=== PATIENT | male | born 1940 | race Caucasian/White ===

== ENCOUNTER 2017-02-24 20:05 | Inpatient (IN) | payer MEDICARE ==
[2017-02-24 20:00] VITALS: BP 176/85; PULSE 73; RESP 20; TEMP 97.7; O2SAT 97
--- NOTE | 2017-02-24 21:20 | HHI.HP ---
HPI Service [facility] Primary Care Physician Ricardo Gray M.D. Admission Diagnosis slurred speech r/o CVA Chief Complaint: slurred speech today Travel History International Travel<30 Days: No Contact w/Intl Traveler <30 Da: No Traveled to Known Affected Are: No History of Present Illness 76-year-old male presents with chief complaint of slurred speech. The patient says he was speaking with someone 3 hours ago on the phone and they asked him what was wrong. They pointed out to him that he has slurred speech. He spoke with someone last night at about 11:30. He says they did not mention any changes in his speech then. Therefore, as far as he knows, he last spoke normally at 11:30 last night. He is unsure when his slurred speech started as he had a pointed out to him by someone else. He denies any other symptoms. Patient without any significant past medical history and denies any other neurologic symptoms . Patient did have trouble eating and drinking today. Review of Systems Neurologic: COMPLAINS OF: Speech Problems Past Family Social History Past Medical History none Past Surgical History none Reported Medications none Allergies: Coded Allergies: No Known Allergies (Unverified , 02/24/17) Social History NS,ND Physical Exam Vital Signs Vital Signs Date Time Temp Pulse Resp B/P Pulse Ox O2 Delivery O2 Flow Rate FiO2 02/24/17 20:00 97.7 73 20 176/85 97 Physical Exam GENERAL: This is a well-nourished, well-developed patient, in no apparent distress. SKIN: No rashes, ecchymoses or lesions. Cool and dry. HEAD: Atraumatic. Normocephalic. No temporal or scalp tenderness. EYES: Pupils equal round and reactive. Extraocular motions intact. No scleral icterus. No injection or drainage. ENT: Nose without bleeding, purulent drainage or septal hematoma. Throat without erythema, tonsillar hypertrophy or exudate. Uvula midline. Airway patent. NECK: Trachea midline. No JVD or lymphadenopathy. Supple, nontender, no meningeal signs. CARDIOVASCULAR: Regular rate and rhythm without murmurs, gallops, or rubs. RESPIRATORY: Clear to auscultation. Breath sounds equal bilaterally. No wheezes , rales, or rhonchi. GASTROINTESTINAL: Abdomen soft, non-tender, nondistended. No hepato-splenomegaly , or palpable masses. No guarding. MUSCULOSKELETAL: Extremities without clubbing, cyanosis, or edema. No joint tenderness, effusion, or edema noted. No calf tenderness. Negative Homans sign bilaterally. NEUROLOGICAL: Awake and alert. Cranial nerves II through XII intact. Motor and sensory grossly within normal limits. Five out of 5 muscle strength in all muscle groups slurred speech. Laboratory labs reviewed from [facility] show no significant abnormalities Imaging chest xray and CT head no acute findings Course in er at [facility] was notified and recommended transfer to [facility] hospital continue asa and they will see patient Assessment and Plan Problem List: (1) CVA (cerebrovascular accident) Status: Acute Plan: slurred speech consistent with CVA no other abnormalities will consult neuro obtain MRI brain MRA 2d echo swallow evaluation continue asa Assessment and Plan further plan as case develops Code Status full Discussed Condition With patient Physician Certification 2 Midnight Certification Type: Admission for Inpatient Services Order for Inpatient Services The services are ordered in accordance with Medicare regulations or non- Medicare payer requirements, as applicable. In the case of services not specified as inpatient-only, they are appropriately provided as inpatient services in accordance with the 2-midnight benchmark. Estimated LOS (days): 3 3 days is the estimated time the patient will need to remain in the hospital, assuming treatment plan goals are met and no additional complications. Post-Hospital Plan: Not yet determined Jair Huff MD Feb 24, 2017 21:20
[2017-02-24] MEDS ORDERED: SODIUM CHLORIDE 0.9% FLUSH 5 ML FLUSH IV FLUSH PRN (21:30)
[2017-02-24] MEDS ORDERED: ENALAPRILAT 1.25 MG/ML VIAL IV PUSH PRN (21:45)
[2017-02-24] MEDS: SODIUM CHLOR 0.45% 1000 ML INJ 1,000 ML IV SCH (22:11)
[2017-02-25] VITALS (10 sets, daily range): BP systolic 133–187; BP diastolic 67–84; PULSE 63–89; RESP 18–20; TEMP 97.3–97.9; O2SAT 94–99
[2017-02-25] MEDS: SODIUM CHLORIDE 0.9% FLUSH 5 ML FLUSH IV FLUSH SCH ×2 (09:00→21:00)
[2017-02-25] MEDS ORDERED: ASPIRIN 325 MG TAB PO SCH (09:00)
[2017-02-25] MEDS: SODIUM CHLOR 0.45% 1000 ML INJ 1,000 ML IV SCH ×2 (09:05→22:28)
[2017-02-25 09:44] LABS: AUTOMATED NEUTROPHIL # 3.2 TH/MM3 (1.8-7.7); BASOPHIL % 0.6 % (0.0-2.0); EOSINOPHIL # 0.2 TH/MM3 (0-0.4); EOSINOPHIL % 3.7 % (0.0-4.0); HEMO FLAGS DIFF FINAL; LYMPH % 23.6 % (9.0-44.0); LYMPHOCYTE # 1.2 TH/MM3 (1.0-4.8); MEAN CELL VOLUME 90.9 FL (80.0-100.0); MEAN CORPUSCULAR HEMOGLOBIN 30.8 PG (27.0-34.0); MEAN CORPUSCULAR HGB CONC 33.9 % (32.0-36.0); MONO % 10.9 % (0.0-8.0); NEUT % 61.2 % (16.0-70.0); PLATELET COUNT 198 TH/MM3 (150-450); RED CELL DISTRIBUTION WIDTH 14.2 % (11.6-17.2); WHITE BLOOD COUNT 5.3 TH/MM3 (4.0-11.0)
[2017-02-25 09:56] LABS: ANION GAP 7 MEQ/L (5-15); BICARBONATE 22.7 MEQ/L (21.0-32.0); BLOOD UREA NITROGEN 10 MG/DL (7-18); CHLORIDE 108 MEQ/L (98-107); GLOMERULAR FILTRATION RATE 100 ML/MIN (>89); POTASSIUM 3.7 MEQ/L (3.5-5.1); SODIUM (NA) 138 MEQ/L (136-145)
[2017-02-25 09:57] LABS: AST (GOT) 6 U/L (15-37)
[2017-02-25 10:02] LABS: ALKALINE PHOSPHATASE 74 U/L (45-117); ALT (GPT) 8 U/L (12-78); HDL CHOLESTEROL 43.2 MG/DL (40.0-60.0); LDL CHOLESTEROL 134 MG/DL (0-99); TOTAL BILIRUBIN ADULT 0.6 MG/DL (0.2-1.0)
--- NOTE | 2017-02-25 10:34 | RADRPT ---
EXAM DATE/TIME: 02/25/2017 10:02 [facility] COMPARISON: No previous studies available for comparison. INDICATIONS : Slurred speech. CVA. MEDICAL HISTORY : None. SURGICAL HISTORY : None. ENCOUNTER: Subsequent ACUITY: 2 day PAIN SCORE: 0/10 LOCATION: head. TECHNIQUE: Multiplanar, multisequence MRI of the brain was performed without contrast. FINDINGS: CEREBRUM: The ventricles are normal for age. No evidence of midline shift, mass lesion, hemorrhage or acute in farction. No extraaxial fluid collections are seen. The pituitary gland and suprasellar cistern are normal in configuration. WHITE MATTER: There is extensive abnormal T2 signal throughout the periventricular white matter and the yvon most c onsistent with moderate microvascular ischemic demyelinative change. POSTERIOR FOSSA: The cerebellum and brainstem are intact. The 4th ventricle is midline. The cerebellopontine angle is unremarkable. The cerebellar tonsils are normal in position. DIFFUSION IMAGING: The exam demonstrates a small area of restricted diffusion in the left insular cortex consistent with acute lacunar infarct. EXTRACRANIAL: The orbits are intact. The sinuses are clear. There is fluid filling the mastoid air cells. CONCLUSION: 1. Small area of acute infarct involving the insular cortex on the left. 2. Advanced microvascular ischemic demyelinative change. 3. Fluid filling the mastoid air cells. Galdino Watts MD on February 25, 2017 at 10:29 Board Certified Radiologist. This report was verified electronically.
--- NOTE | 2017-02-25 10:36 | RADRPT ---
EXAM DATE/TIME: 02/25/2017 10:02 [facility] COMPARISON: No previous studies available for comparison. INDICATIONS : Slurred speech. CVA. MEDICAL HISTORY : None. SURGICAL HISTORY : None. ENCOUNTER: Subsequent ACUITY: 2 day PAIN SCORE: 0/10 LOCATION: head. Please note a normal MRA of the brain does not entirely exclude the possibility of a small aneurysm, nor the possibility of distal intracranial vessel disease. TECHNIQUE: 3D time of flight MRA was performed. Source images, multiplanar STS MIP, and 3D volume MIP reconstru ctions were reviewed. FINDINGS: There is excellent visualization of the major intracranial arteries out to the second-order branch ve ssels. There is no evidence for aneurysm, vessel truncation or stenosis, and no evidence for vascula r malformation. CONCLUSION: 1. No large or central vessel occlusion identified. Galdino Watts MD on February 25, 2017 at 10:33 Board Certified Radiologist. This report was verified electronically.
--- NOTE | 2017-02-25 14:29 | HHI.PR ---
Subjective Remarks Pt presented to acute onset of slurred speech yesterday Pt feels that his speech is unchanged Objective Vitals Vital Signs Date Time Temp Pulse Resp B/P Pulse Ox O2 Delivery O2 Flow Rate FiO2 02/25/17 13:37 94 21 02/25/17 12:14 97.4 66 18 147/68 97 02/25/17 09:30 66 02/25/17 08:35 97.3 63 18 169/77 99 02/25/17 04:00 97.3 71 20 147/77 97 02/25/17 00:00 97.5 65 20 158/79 98 02/24/17 20:00 97.7 73 20 176/85 97 02/24/17 02/24/17 02/25/17 15:00 23:00 07:00 Intake Total 550 ml Output Total 300 ml Balance 250 ml Intake IV Total 550 ml Output Urine Total 300 ml Result Diagram: 02/25/17 0900 02/25/17 0900 Other Results Laboratory Tests Test 02/25/17 09:00 White Blood Count 5.3 TH/MM3 Red Blood Count 4.40 MIL/MM3 Hemoglobin 13.6 GM/DL Hematocrit 40.0 % Mean Corpuscular Volume 90.9 FL Mean Corpuscular Hemoglobin 30.8 PG Mean Corpuscular Hemoglobin 33.9 % Concent Red Cell Distribution Width 14.2 % Platelet Count 198 TH/MM3 Mean Platelet Volume 7.9 FL Neutrophils (%) (Auto) 61.2 % Lymphocytes (%) (Auto) 23.6 % Monocytes (%) (Auto) 10.9 % Eosinophils (%) (Auto) 3.7 % Basophils (%) (Auto) 0.6 % Neutrophils # (Auto) 3.2 TH/MM3 Lymphocytes # (Auto) 1.2 TH/MM3 Monocytes # (Auto) 0.6 TH/MM3 Eosinophils # (Auto) 0.2 TH/MM3 Basophils # (Auto) 0.0 TH/MM3 CBC Comment DIFF FINAL Differential Comment Sodium Level 138 MEQ/L Potassium Level 3.7 MEQ/L Chloride Level 108 MEQ/L Carbon Dioxide Level 22.7 MEQ/L Anion Gap 7 MEQ/L Blood Urea Nitrogen 10 MG/DL Creatinine 0.76 MG/DL Estimat Glomerular Filtration 100 ML/MIN Rate Random Glucose 85 MG/DL Calcium Level 8.0 MG/DL Total Bilirubin 0.6 MG/DL Aspartate Amino Transf 6 U/L (AST/SGOT) Alanine Aminotransferase 8 U/L (ALT/SGPT) Alkaline Phosphatase 74 U/L Total Protein 6.3 GM/DL Albumin 3.0 GM/DL Triglycerides Level 116 MG/DL Cholesterol Level 200 MG/DL LDL Cholesterol 134 MG/DL HDL Cholesterol 43.2 MG/DL Cholesterol/HDL Ratio 4.62 RATIO Imaging Last Impressions Head Magnetic Resonance Angiography 02/25/17 06 Signed Impressions: Service Date/Time: Saturday, February 25, 2017 10:02 - CONCLUSION: 1. No large or central vessel occlusion identified. Galdino Watts MD Brain MRI 02/25/17 06 Signed Impressions: Service Date/Time: Saturday, February 25, 2017 10:02 - CONCLUSION: 1. Small area of acute infarct involving the insular cortex on the left. 2. Advanced microvascular ischemic demyelinative change. 3. Fluid filling the mastoid air cells. Galdino Watts MD Objective Remarks General: NAD, AAOx3 Chest: CTA Cardiac: Regular Abd: +BS, soft ND/NT Ext: No edema Neuro: Strength equal bilaterally in UE and LE, some slurred speech A/P Problem List: (1) CVA (cerebrovascular accident) Status: Acute Plan: - Pt is a 76 y/o male with reported hx of HTN but has not been on any medication for this. - He presented to the ED in [place] with slurred speech, acute onset on 02/24/17 - Head CT (02/24) --> Negative - MRI Brain (02/25) --> Small area of acute infarct involving the insular cortex on the left. Advanced microvascular ischemic demyelinative change. Fluid filling the mastoid air cells - MRA Head (02/25) --> No large or central vessel occlusion identified. - 2D echo is ordered - Telemetry with NSR - Neurology was consulted at admission - Permissive HTN, Vasotec PRN - IVF - HOB flat - ST evaluated and pt recommended soft diet with nectar thickened liquids - ASA 325mg po daily - FLP --> LDL 134, HDL 43.2, Total cholesterol 200, Triglycerides 116. - Start Pravachol 20mg po HS - PT evaluation - Supportive care - DVT prophylaxis Assessment and Plan Patient examined. Assessment and plan formulated with Jaky Trevino PA-C. I agree with the above. Problem Qualifiers (1) CVA (cerebrovascular accident): Jaky Trevino Feb 25, 2017 14:29 Kt Bey DO Mar 02, 2017 00:52
--- NOTE | 2017-02-25 18:14 | ECHRPT ---
Indication: cva/tia CONCLUSIONS Normal left ventricular size. Wall thickness is normal. The left ventricular systolic function is mildly reduced with an estimated ejection fraction in the range of 45- 50%. [id number] mitral valve regurgitation. BP: / HR: Rhythm: Sinus MEASUREMENTS (Male / Female) Normal Values Technical Quality:Good 2D ECHO LV Diastolic Diameter PLAX 4.5 cm 4.2 - 5.9 / 3.9 - 5.3 cm LV Systolic Diameter PLAX 3.5 cm IVS Diastolic Thickness 1.0 cm 0.6 - 1.0 / 0.6 - 0.9 cm LVPW Diastolic Thickness 0.7 cm 0.6 - 1.0 / 0.6 - 0.9 cm LV Relative Wall Thickness 0.4 LA Systolic Diameter LX 3.2 cm 3.0 - 4.0 / 2.7 - 3.8 cm M-MODE Aortic Root Diameter MM 2.8 cm AV Cusp Separation MM 1.7 cm DOPPLER Mitral E Point Velocity 70.6 cm/s Mitral A Point Velocity 96.7 cm/s Mitral E to A Ratio 0.7 TR Peak Velocity 134.0 cm/s TR Peak Gradient 7.2 mmHg FINDINGS LEFT VENTRICLE Normal left ventricular size. Wall thickness is normal. The left ventricular systolic function is mildly reduced with an estimated ejection fraction in the range of 45- 50%. RIGHT VENTRICLE Normal right ventricular size and systolic function. LEFT ATRIUM The left atrial size is normal. RIGHT ATRIUM The right atrial size is normal. ATRIAL SEPTUM Normal atrial septal thickness without atrial level shunting by limited color doppler interrogation. AORTA The aortic root and proximal ascending aorta are normal in size on limited imaging. MITRAL VALVE [id number] mitral valve regurgitation. AORTIC VALVE Trileaflet aortic valve. No aortic valve stenosis or regurgitation. TRICUSPID VALVE Structurally normal tricuspid valve. No tricuspid valve stenosis or regurgitation. PULMONARY VALVE The pulmonary valve is not well visualized. VESSELS The inferior vena cava is normal in size. PERICARDIUM No pericardial effusion. Darryl Lares MD (Electronically Signed) Final Date:25 February 2017 18:13
[2017-02-25] MEDS ORDERED: GLUCAGON 1 MG/ML VIAL OTHER PRN (20:30)
[2017-02-25] MEDS ORDERED: DEXTROSE 50% IN WATER 50 ML VIAL(D50) IV PUSH PRN (20:30)
[2017-02-25] MEDS ORDERED: SODIUM CHLORIDE 0.9% FLUSH 5 ML FLUSH IV FLUSH PRN (20:30)
[2017-02-25] MEDS ORDERED: SODIUM CHLORIDE 0.9% FLUSH 5 ML FLUSH IV FLUSH SCH (21:00)
[2017-02-25] MEDS: INSULIN ASPART SUPPLEMENTAL SCALE SQ SCH (21:00)
[2017-02-25] MEDS: PRAVASTATIN SOD 20 MG TAB PO SCH (22:11)
--- NOTE | 2017-02-25 22:23 | MB ---
cc: NICOLE ZAMBRANO DATE OF CONSULTATION 02/25/17 REASON FOR CONSULTATION Stroke. HISTORY OF PRESENT ILLNESS Mr. Michelle is a very pleasant 76-year-old man in his usual state of health until yesterday when he developed sudden onset of slurred speech. He had no focal weakness or numbness. His symptoms have persisted without change. PAST MEDICAL HISTORY Otherwise unremarkable. MEDICATIONS At home none. ALLERGIES None known. SOCIAL HISTORY Does not smoke. Does not drink any alcohol. NEUROLOGIC EXAMINATION VITAL SIGNS: Blood pressure is 133/67, pulse 89, respiratory rate is 18, temperature 97 degrees. NEURO: Higher cortical function, he is alert, oriented. Speech dysarthric. Cranial nerves intact. Motor exam 5/5 strength of all groups. There is no drift. Reflexes are symmetric. IMAGING STUDIES MRI of the brain small acute stroke in the insular cortex on the left side, ischemic demyelinization is identified. MRA of the brain is unremarkable. LABORATORY DATA White count 5300. Hemoglobin 13.6, hematocrit 40%, platelet count 198,000. Sodium is 138, potassium 3.7, chloride 108, CO2 22.7, BUN is 10, creatinine 0.76, GFR is 100, cholesterol 200, LDL 134, HDL 43.2. CARDIOLOGY STUDIES He had an echocardiogram, EF 45-50%. Right ventricle normal. Left atrial size normal. Right atrial size normal. Atrial septum normal. The aorta root is normal. Mitral valve trace regurgitation. Aortic valve normal. Pulmonary valve normal. Tricuspid valve normal. Pulmonary valve not well visualized. IMPRESSION Left insular cortex stroke. RECOMMENDATIONS Will check carotid ultrasound. Also, start the patient on statin as well as aspirin 325 milligrams daily. Monitor cardiac telemetry, rule out a-fib. MD HILTON Reynolds/JIMENA /8:14 PM /10:11 PM
--- NOTE | 2017-02-25 22:24 | RADRPT ---
EXAM DATE/TIME: 02/25/2017 21:34 [facility] COMPARISON: No previous studies available for comparison. INDICATIONS : CVA. MEDICAL HISTORY : Slurred speech. SURGICAL HISTORY : ENCOUNTER: Initial ACUITY: 1 day PAIN SCORE: 0/10 LOCATION: Bilateral neck PEAK SYSTOLIC VELOCITIES (cm/sec): ICA/CCA RATIO: Right: 0.9 Left: 0.7 ICA: Right: 66 Left: 72 CCA: Right: 103 Left: 111 ECA: Right: 110 Left: 122 VERTEBRAL: Right: 37 antegrade Left: 42 antegrade Elevated flow velocities and ICA/CCA ratios have been found to correlate with increased degrees of vessel stenosis, calculated as percentage of diameter relative to a normal segment of distal ICA/CCA FINDINGS: RIGHT CAROTID: No significant stenosis is visualized. The waveforms are within normal limits. LEFT CAROTID: No significant stenosis is visualized. The waveforms are within normal limits. VERTEBRAL ARTERIES: Antegrade flow is seen in both vertebral arteries. MISCELLANEOUS: None. CONCLUSION: Normal examination. Prieto Perdomo MD on February 25, 2017 at 22:21 Board Certified Radiologist. This report was verified electronically.
[2017-02-25] MEDS: ASPIRIN 325 MG TAB PO SCH (22:26)
[2017-02-26] VITALS (9 sets, daily range): BP systolic 114–150; BP diastolic 64–80; PULSE 73–88; RESP 18–21; TEMP 97.5–98.5; O2SAT 95–96
[2017-02-26] MEDS: INSULIN ASPART SUPPLEMENTAL SCALE SQ SCH ×4 (05:55→21:00)
[2017-02-26] MEDS: SODIUM CHLORIDE 0.9% FLUSH 5 ML FLUSH IV FLUSH SCH ×2 (07:51→21:00)
[2017-02-26] MEDS: ASPIRIN 325 MG TAB PO SCH (07:51)
[2017-02-26] MEDS: SODIUM CHLOR 0.45% 1000 ML INJ 1,000 ML IV SCH (07:52)
--- NOTE | 2017-02-26 14:32 | HHI.PR ---
Subjective Remarks Pt feels that his speech is improving His swallowing is improving. Objective Vitals Vital Signs Date Time Temp Pulse Resp B/P Pulse Ox O2 Delivery O2 Flow Rate FiO2 02/26/17 14:02 95 21 02/26/17 12:00 97.8 78 20 121/66 95 02/26/17 09:48 75 02/26/17 08:00 97.5 75 21 150/72 96 02/26/17 04:00 97.7 78 20 114/64 95 02/26/17 00:00 98.5 79 20 141/80 96 02/25/17 23:30 73 02/25/17 19:13 97.9 89 18 133/67 94 02/25/17 18:11 96 21 02/25/17 16:05 97.6 66 18 187/84 96 02/25/17 02/25/17 02/26/17 15:00 23:00 07:00 Intake Total 323 ml 864 ml Output Total 225 ml Balance 98 ml 864 ml Intake IV Total 323 ml 864 ml Output Urine Total 225 ml # Voids 2 1 Result Diagram: 02/25/17 0900 02/25/17 0900 Other Results Laboratory Tests Test 02/25/17 09:00 White Blood Count 5.3 TH/MM3 Red Blood Count 4.40 MIL/MM3 Hemoglobin 13.6 GM/DL Hematocrit 40.0 % Mean Corpuscular Volume 90.9 FL Mean Corpuscular Hemoglobin 30.8 PG Mean Corpuscular Hemoglobin 33.9 % Concent Red Cell Distribution Width 14.2 % Platelet Count 198 TH/MM3 Mean Platelet Volume 7.9 FL Neutrophils (%) (Auto) 61.2 % Lymphocytes (%) (Auto) 23.6 % Monocytes (%) (Auto) 10.9 % Eosinophils (%) (Auto) 3.7 % Basophils (%) (Auto) 0.6 % Neutrophils # (Auto) 3.2 TH/MM3 Lymphocytes # (Auto) 1.2 TH/MM3 Monocytes # (Auto) 0.6 TH/MM3 Eosinophils # (Auto) 0.2 TH/MM3 Basophils # (Auto) 0.0 TH/MM3 CBC Comment DIFF FINAL Differential Comment Sodium Level 138 MEQ/L Potassium Level 3.7 MEQ/L Chloride Level 108 MEQ/L Carbon Dioxide Level 22.7 MEQ/L Anion Gap 7 MEQ/L Blood Urea Nitrogen 10 MG/DL Creatinine 0.76 MG/DL Estimat Glomerular Filtration 100 ML/MIN Rate Random Glucose 85 MG/DL Calcium Level 8.0 MG/DL Total Bilirubin 0.6 MG/DL Aspartate Amino Transf 6 U/L (AST/SGOT) Alanine Aminotransferase 8 U/L (ALT/SGPT) Alkaline Phosphatase 74 U/L Total Protein 6.3 GM/DL Albumin 3.0 GM/DL Triglycerides Level 116 MG/DL Cholesterol Level 200 MG/DL LDL Cholesterol 134 MG/DL HDL Cholesterol 43.2 MG/DL Cholesterol/HDL Ratio 4.62 RATIO Imaging Last Impressions Head Magnetic Resonance Angiography 02/25/17 0600 Signed Impressions: Service Date/Time: Saturday, February 25, 2017 10:02 - CONCLUSION: 1. No large or central vessel occlusion identified. Galdino Watts MD Brain MRI 02/25/17 0600 Signed Impressions: Service Date/Time: Saturday, February 25, 2017 10:02 - CONCLUSION: 1. Small area of acute infarct involving the insular cortex on the left. 2. Advanced microvascular ischemic demyelinative change. 3. Fluid filling the mastoid air cells. Galdino Watts MD Carotid Artery Ultrasound 02/25/17 0000 Signed Impressions: Service Date/Time: Saturday, February 25, 2017 21:34 - CONCLUSION: Normal examination. Prieto Perdomo MD Objective Remarks General: NAD, AAOx3 Chest: CTA Cardiac: Regular Abd: +BS, soft ND/NT Ext: No edema Neuro: Strength equal bilaterally in UE and LE, some slurred speech (improving) A/P Problem List: (1) CVA (cerebrovascular accident) Status: Acute Plan: - Pt is a 76 y/o male with reported hx of HTN but has not been on any medication for this. - He presented to the ED in [place] with slurred speech, acute onset on 02/24/17 - Head CT (02/24) --> Negative - MRI Brain (02/25) --> Small area of acute infarct involving the insular cortex on the left. Advanced microvascular ischemic demyelinative change. Fluid filling the mastoid air cells - MRA Head (02/25) --> No large or central vessel occlusion identified. - Carotid US (02/25) --> Normal examination. - 2D echo --> Normal LV size and wall thickness, EF 45-50%, [id number] mitral valve regurgitation. - Telemetry with NSR - Neurology following - Pts BP is improving, Vasotec PRN - ST re-evaluated today and up'd his diet to regular consistency with thin liquids. - ASA 325mg po daily - FLP --> LDL 134, HDL 43.2, Total cholesterol 200, Triglycerides 116. - Cont.Pravachol 20mg po HS - PT evaluation - Supportive care - DVT prophylaxis - Anticipate d/c to home tomorrow Assessment and Plan Patient examined. Assessment and plan formulated with Jaky Trevino PA-C. I agree with the above. Problem Qualifiers (1) CVA (cerebrovascular accident): Jaky Trevino Feb 26, 2017 14:32 Kt Bey DO Mar 02, 2017 00:52
--- NOTE | 2017-02-26 15:08 | HHI.PR ---
Review/Management Diagnosis left insular cortex--exam stable Plan continue asa and statin Diagnosis/Plan: Subjective Subjective Comments No acute events reported He feels his speech is improving Active Medications Current Medications Medications (Trade) Dose Ordered Sig/Cassandra Route Start Time Stop Time Status Last Admin (NS Flush) 2 ml BID IV FLUSH 02/25/17 09:00 02/25/17 09:00 (NS Flush) 2 ml UNSCH PRN IV FLUSH 02/24/17 21:30 (Vasotec Inj) 1.25 mg Q6H PRN IV PUSH 02/24/17 21:45 (Pravachol) 20 mg HS PO 02/25/17 21:00 02/25/17 22:11 (Aspirin) 325 mg DAILY PO 02/25/17 21:00 02/26/17 07:51 (NovoLOG SUPPLEMENTAL SCALE) 1 ACHS SQ 02/25/17 21:00 (D50w (Vial) Inj) 50 ml UNSCH PRN IV PUSH 02/25/17 20:30 (Glucagon Inj) 1 mg UNSCH PRN OTHER 02/25/17 20:30 Allergies Allergies Coded Allergies No Known Allergies (Unverified02/24/17) Exam I&O / VS 02/25/17 02/25/17 02/26/17 14:59 22:59 06:59 Intake Total 323 ml 864 ml Output Total 225 ml Balance 98 ml 864 ml Intake IV Total 323 ml 864 ml Output Urine Total 225 ml # Voids 2 1 Vital Signs Date Time Temp Pulse Resp B/P Pulse Ox O2 Delivery O2 Flow Rate FiO2 02/26/17 14:02 95 21 02/26/17 12:00 97.8 78 20 121/66 95 02/26/17 09:48 75 02/26/17 08:00 97.5 75 21 150/72 96 02/26/17 04:00 97.7 78 20 114/64 95 02/26/17 00:00 98.5 79 20 141/80 96 02/25/17 23:30 73 02/25/17 19:13 97.9 89 18 133/67 94 02/25/17 18:11 96 21 02/25/17 16:05 97.6 66 18 187/84 96 General: Alert and Oriented, No acute distress Exam Comments alert, oriented. Speechis mildly dysarthric CN intact MOTOR 5/5 BUE and BLE Jim,Watson A. PhD Feb 26, 2017 15:08
--- NOTE | 2017-02-26 16:04 | PD.CONS ---
[facility] Service Rehabilitation Medicine Consult Requested By Watson Fernandez MD Reason for Consult Comprehensive rehabilitation evaluation. Primary Care Physician Ricardo Gray M.D. History of Present Illness Felipe Michelle is a 76-year-old right-hand dominant male admitted [facility] 02/24/17 with slurred speech and difficulty swallowing. 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 MRA and carotid ultrasound showed no significant vascular abnormality. Patient denies any focal weakness or sensory change. Review of Systems Constitutional: DENIES: Dizziness Eyes: DENIES: Diplopia Ears, nose, mouth, throat: DENIES: Hearing loss, Throat pain Respiratory: DENIES: Shortness of breath Cardiovascular: DENIES: Chest pain Gastrointestinal: DENIES: Abdominal pain Genitourinary: DENIES: Urinary incontinence Integumentary: DENIES: Rash Hematologic/lymphatic: DENIES: Bruising Immunologic/allergic: DENIES: Urticaria Neurologic: COMPLAINS OF: Speech Problems, DENIES: Headache, Localized weakness , Paresthesias Psychiatric: DENIES: Confusion (patient reporting some difficulty swallowing) Past Family Social History Allergies: Coded Allergies: No Known Allergies (Unverified , 02/24/17) Past Medical History None Past Surgical History None Current Medications Current Medications Medications (Trade) Dose Ordered Sig/Cassandra Route Start Time Stop Time Status Last Admin (NS Flush) 2 ml BID IV FLUSH 02/25/17 09:00 02/25/17 09:00 (NS Flush) 2 ml UNSCH PRN IV FLUSH 02/24/17 21:30 (Vasotec Inj) 1.25 mg Q6H PRN IV PUSH 02/24/17 21:45 (Pravachol) 20 mg HS PO 02/25/17 21:00 02/25/17 22:11 (Aspirin) 325 mg DAILY PO 02/25/17 21:00 02/26/17 07:51 (NovoLOG SUPPLEMENTAL SCALE) 1 ACHS SQ 02/25/17 21:00 (D50w (Vial) Inj) 50 ml UNSCH PRN IV PUSH 02/25/17 20:30 (Glucagon Inj) 1 mg UNSCH PRN OTHER 02/25/17 20:30 Family History Mother: ; breast CA Social History Prior to admission lived in [place], [place]. He lives alone and was in the process of moving to friend's home in [place], [place] Patient was independent with mobility and ADL's. Exam I&O / VS 02/25/17 02/25/17 02/26/17 15:00 23:00 07:00 Intake Total 323 ml 864 ml Output Total 225 ml Balance 98 ml 864 ml Intake IV Total 323 ml 864 ml Output Urine Total 225 ml # Voids 2 1 Vital Signs Date Time Temp Pulse Resp B/P Pulse Ox O2 Delivery O2 Flow Rate FiO2 02/26/17 14:02 95 21 02/26/17 12:00 97.8 78 20 121/66 95 02/26/17 09:48 75 02/26/17 08:00 97.5 75 21 150/72 96 02/26/17 04:00 97.7 78 20 114/64 95 02/26/17 00:00 98.5 79 20 141/80 96 02/25/17 23:30 73 02/25/17 19:13 97.9 89 18 133/67 94 02/25/17 18:11 96 21 02/25/17 16:05 97.6 66 18 187/84 96 General: No acute distress Respiratory: Lungs CTA, Non-labored respirations, BS equal Gastrointestinal: Positive Bowel Sounds, Non-Distended, Non-Tender Cardiovascular: Normal rate, Normal peripheral perfusion, Regular Rhythm Skin: Other (No rash noted) Musculoskeletal: Swelling (No edema) Psychiatric: Cooperative, Appropriate mood & affect Orientation: oriented to Self, oriented to Place, oriented to Situation Neurologic: Pupils (PERRLA), EOM (Intact), Visual Vincent (Intact to confrontation), Speech (Dysarthric with occasional word finding difficulty) Motor: Right Upper Extremity (5/5), Left Upper Extremity (5/5), Right Lower Extremity (5/5), Left Lower Extremity (5/5) Sensory Intact to light touch all extremities DTRs: Normal Babinski: Negative Assessment and Plan Diagnosis: (1) CVA (cerebrovascular accident) Laterality of affected vessel: unspecified Assessment 1. Left insular cortex CVA 2. Dysarthria and dysphagia Plan 1. Patient progressing with mobility and transfers with PT independently and ambulated 600 feet no device. Continue to mobilize. 2. ST addressing swallow and regular diet and liquids have been upgraded to regular. Continue to monitor. Dysarthria treatment and referral per case management for ongoing outpatient ST 3. Will follow while hospitalized and as needed in outpatient clinic. Thank you for this consult Carrie Cosby MD Feb 26, 2017 16:03
[2017-02-26 17:22] LABS: HEMOGLOBIN P3 3.5 %
[2017-02-26 17:45] LABS: HEMOGLOBIN A1a 1.6 %; HEMOGLOBIN A1b 1.1 %; HEMOGLOBIN F 1.2 %; HEMOGLOBIN LA1C 1.3 %
[2017-02-26] MEDS: PRAVASTATIN SOD 20 MG TAB PO SCH (21:16)
[2017-02-27] VITALS: BP 136/75; PULSE 80; RESP 18; TEMP 97.3; O2SAT 95
[2017-02-27 04:00] VITALS: BP 137/76; PULSE 82; RESP 18; TEMP 97.4; O2SAT 96
[2017-02-27] MEDS: INSULIN ASPART SUPPLEMENTAL SCALE SQ SCH (06:54)
[2017-02-27 07:00] VITALS: PULSE 92
[2017-02-27 08:00] VITALS: BP 153/82; PULSE 89; RESP 17; TEMP 97.7; O2SAT 92
[2017-02-27] MEDS: ASPIRIN 325 MG TAB PO SCH (09:16)
[2017-02-27 12:00] VITALS: BP 130/76; PULSE 80; RESP 18; TEMP 98.4; O2SAT 98
[2017-02-27 12:10] VITALS: O2SAT 93
[2017-02-27] MEDS ORDERED: PRAV20TA PO (13:33)
[2017-02-27] MEDS ORDERED: ASPI325T PO (13:33)
--- NOTE | 2017-02-27 13:34 | HHI.DCPOC ---
Discharge Care Plan Diagnosis: (1) CVA (cerebrovascular accident) Goals to Promote Your Health * To prevent worsening of your condition and complications * To maintain your health at the optimal level Directions to Meet Your Goals Take your medications as prescribed Follow your dietary instruction Follow activity as directed Keep your appointments as scheduled Take your immunizations and boosters as scheduled If your symptoms worsen call your PCP, if no PCP go to Urgent Care Center or Emergency Room Smoking is Dangerous to Your Health. Avoid second hand smoke Call the 24-hour hour crisis hotline for domestic abuse at Jaky Trevino Feb 27, 2017 13:34 Kt Bey DO Mar 02, 2017 00:53
--- NOTE | 2017-02-27 13:40 | HHI.DS ---
Discharge Summary Admission Date Feb 24, 2017 at 20:15 Discharge Date: Feb 27, 2017 Admitting Diagnosis slurred speech r/o CVA (1) CVA (cerebrovascular accident) Diagnosis: [facility] Dr. Watson Fernandez - Neurology Brief History 76-year-old male presents with chief complaint of slurred speech. The patient says he was speaking with someone 3 hours ago on the phone and they asked him what was wrong. They pointed out to him that he has slurred speech. He spoke with someone last night at about 11:30. He says they did not mention any changes in his speech then. Therefore, as far as he knows, he last spoke normally at 11:30 last night. He is unsure when his slurred speech started as he had a pointed out to him by someone else. He denies any other symptoms. Patient without any significant past medical history and denies any other neurologic symptoms . Patient did have trouble eating and drinking today. CBC/BMP: 02/25/17 0900 02/25/17 0900 Significant Findings Laboratory Tests Test 02/25/17 09:00 Red Blood Count 4.40 MIL/MM3 (4.50-5.90) Monocytes (%) (Auto) 10.9 % (0.0-8.0) Chloride Level 108 MEQ/L (98-107) Calcium Level 8.0 MG/DL (8.5-10.1) Aspartate Amino Transf 6 U/L (15-37) (AST/SGOT) Alanine Aminotransferase 8 U/L (12-78) (ALT/SGPT) Total Protein 6.3 GM/DL (6.4-8.2) Albumin 3.0 GM/DL (3.4-5.0) LDL Cholesterol 134 MG/DL (0-99) Imaging Last Impressions Head Magnetic Resonance Angiography 02/25/17599 Signed Impressions: Service Date/Time: Saturday, February 25, 2017 10:02 - CONCLUSION: 1. No large or central vessel occlusion identified. Galdino Watts MD Brain MRI 02/25/17599 Signed Impressions: Service Date/Time: Saturday, February 25, 2017 10:02 - CONCLUSION: 1. Small area of acute infarct involving the insular cortex on the left. 2. Advanced microvascular ischemic demyelinative change. 3. Fluid filling the mastoid air cells. Galdino Watts MD Carotid Artery Ultrasound 02/25/17 0000 Signed Impressions: Service Date/Time: Saturday, February 25, 2017 21:34 - CONCLUSION: Normal examination. Prieto Perdomo MD PE at Discharge General: NAD, AAOx3 Chest: CTA Cardiac: Regular Abd: +BS, soft ND/NT Ext: No edema Neuro: Strength equal bilaterally in UE and LE, some slurred speech (improving) Hospital Course CVA (cerebrovascular accident) - Pt is a 76 y/o male with reported hx of HTN but has not been on any medication for this. - He presented to the ED in [place] with slurred speech, acute onset on 02/24/17 - Head CT (02/24) --> Negative - MRI Brain (02/25) --> Small area of acute infarct involving the insular cortex on the left. Advanced microvascular ischemic demyelinative change. Fluid filling the mastoid air cells - MRA Head (02/25) --> No large or central vessel occlusion identified. - Carotid US (02/25) --> Normal examination. - 2D echo --> Normal LV size and wall thickness, EF 45-50%, [id number] mitral valve regurgitation. - Telemetry with NSR - Neurology following - Pts BP is improving, Vasotec PRN - ST re-evaluated on 02/26 and up'd his diet to regular consistency with thin liquids. - FLP --> LDL 134, HDL 43.2, Total cholesterol 200, Triglycerides 116. - Pt will be continued on ASA 325mg po daily and Pravachol 20mg po HS - He will need to followup with his PCP, Dr. Gray in 1 week - Pt will need to followup with Dr. Feranndez in 2 weeks - Pt would benefit from continued outpt speech therapy Pt Condition on Discharge: Stable Discharge Disposition: Discharge Home Discharge Instructions DIET: Follow Instructions for: Heart Healthy Diet Speech Therapy-Diet Recommends: Regular Activities you can perform: Regular-No Restrictions Follow up Referrals: Neurology - 2 Weeks with Watson Fernandez PhD MD PCP Follow-up - [address] Ricardo Gray Physical Medicine & Rehab - 2 Months with Carrie Cosby MD New Medications: Aspirin (Aspirin) 325 Mg Tab 325 MG PO DAILY for Stroke Prevention, #31 TAB Pravastatin (Pravachol) 20 Mg Tab 20 MG PO HS for Stroke Prevention, #31 TAB Additional Information Patient examined. Assessment and plan formulated with Jaky Trevino PA-C. I agree with the above. Jaky Trevino Feb 27, 2017 13:40 Kt Bey DO Mar 02, 2017 00:53
--- NOTE | 2017-02-27 15:16 | HM ---
Date Performed: 02/25/2017 Time Performed: 19:55:00 HOOKUP DATE: 02/25/17 07:55:00 PM Wed ANALYSIS START TIME: 02/25/2017 8:00:00 PM ANALYSIS END TIME: 02/26/2017 7:59:00 PM PATIENT AGE: 76 PATIENT HEIGHT PATIENT WEIGHT DRUG LIST PATIENT DIAGNOSIS: CVA TEST NARRATIVE: The patient's average heart rate was 78 BPM. Heart rates greater than 120 B PM were noted < 1% of the time. No episodes of bradycardia were noted. No pauses exceeding 2.0 s econds were noted. 2 ventricular ectopics, which represented < 1% of the total beat count, were n oted. The highest ventricular ectopic frequency occurred from 05:00 AM to 06:00 AM Nikky. During this time 2 VE(s) occurred. Ventricular ectopics were observed as 2 isolated beat(s) only. No couplets or runs were noted. No supraventricular ectopics were noted. No episodes of ST depression (de fined as -1.0 mm or more) were noted in channel 1. No episodes of ST depression (defined as -1.0 mm or more) were noted in channel 2. No episodes of ST depression (defined as -1.0 mm or more) were not ed in channel 3. NO DIARY RETURNED TEST INTERPRETATION: Holter monitor demonstrates Sinus rhythm with a period of sinus tachycardia to 120 bpm. A rare PVC was noted. No other significant abnormalit ies were seen. Signed by : Ricardo puri
[2017-03-18] MEDS ORDERED: EQ A81TA PO (17:30)
== END 2017-02-27 16:30 | disposition home or self-care (01) | DRG 66 ==
LOC: NEDDLT 20:05 → N05A 20:15
PROVIDERS: ADMIT Hospitalist; ATTEND Hospitalist
DX: I63.9 Cerebral infarction, unspecified (principal); R13.10 Dysphagia, unspecified; I10 Essential (primary) hypertension; R47.81 Slurred speech; R47.1 Dysarthria and anarthria
CPT/HCPCS: 70450; 70544; 70551; 71010; 80053; 80061; 80307; 81001; 82948; 83036; 84484; 85025; 85610; 85730; 93005; 93225; 93226; 93306; 93880; 99285

== ENCOUNTER 2017-03-18 21:45 | Inpatient (IN) | payer MEDICARE ==
[~2017-03-18 21:45] MED LIST: ASPI325T PO; EQ A81TA PO; PRAV20TA PO
[2017-03-18 22:33] VITALS: BP 152/72; PULSE 71; RESP 18; TEMP 98.3; O2SAT 98
[2017-03-18] MEDS ORDERED: ACETAMINOPHEN 325 MG TAB PO PRN (22:45)
[2017-03-18] MEDS ORDERED: SENNOSIDES 8.6 MG TAB PO PRN (22:45)
[2017-03-18] MEDS ORDERED: MAGNESIUM HYDROXIDE SUSP 30 ML CUP PO PRN (22:45)
[2017-03-18] MEDS ORDERED: SODIUM CHLORIDE 0.9% FLUSH 10 ML FLUSH IV FLUSH PRN (22:45)
[2017-03-18] MEDS ORDERED: LACTULOSE SYRUP 20 GM/30 ML CUP PO PRN (22:45)
[2017-03-18] MEDS ORDERED: NALOXONE HCL 0.4 MG/ML AMP IV PRN (22:45)
[2017-03-18] MEDS ORDERED: BISACODYL 10 MG SUPP RECTAL PRN (22:45)
--- NOTE | 2017-03-18 22:46 | HHI.HP ---
HPI Service [facility] Hospitalists Primary Care Physician Ricardo Gray M.D. Admission Diagnosis visual disturbance ?cva Chief Complaint: blurred and double vision 1 week Travel History International Travel<30 Days: No Contact w/Intl Traveler <30 Da: No Traveled to Known Affected Are: No History of Present Illness This is a 76-year-old male who had a recent CVA who presents for visual complaint. He states that for the last week, he has had blurred vision and diplopia. It has been vertical diplopia. No new unilateral weakness, numbness , tingling. No headache. He states that he does have chronic visual changes in his right eye which are unchanged. The symptoms do not seem to be more affected on one side than the other. No associated fever, chills, cough, congestion. No conjunctival injection. He saw an preform machine operator today but does not know the results of what they found. Patient is concerned this is related to his CVA. Note patient opthalmologist was Dr. Donato and they will let [facility] know of their findings. According to discharge from [facility] 02[facility]26 had full neuro work up with 2d echo,carotid MRA Holter no findings other then CVA had speech deficit at that time. Will admit and have MRI obtain opthalmology evaluation results and may need neuro input. Patient was supposed to be on full asa was only on 81 will increase to full . Review of Systems Eyes: COMPLAINS OF: Blurred vision, Diplopia Past Family Social History Past Medical History CVA,hyperlipidemia Reported Medications asa 81,pravachol Allergies: Coded Allergies: No Known Allergies (Unverified , 03/18/17) Social History NS,ND Physical Exam Physical Exam GENERAL: This is a well-nourished, well-developed patient, in no apparent distress. SKIN: No rashes, ecchymoses or lesions. Cool and dry. HEAD: Atraumatic. Normocephalic. No temporal or scalp tenderness. EYES: Pupils equal round and reactive. Extraocular motions intact. No scleral icterus. No injection or drainage. ENT: Nose without bleeding, purulent drainage or septal hematoma. Throat without erythema, tonsillar hypertrophy or exudate. Uvula midline. Airway patent. NECK: Trachea midline. No JVD or lymphadenopathy. Supple, nontender, no meningeal signs. CARDIOVASCULAR: Regular rate and rhythm without murmurs, gallops, or rubs. RESPIRATORY: Clear to auscultation. Breath sounds equal bilaterally. No wheezes , rales, or rhonchi. GASTROINTESTINAL: Abdomen soft, non-tender, nondistended. No hepato-splenomegaly , or palpable masses. No guarding. MUSCULOSKELETAL: Extremities without clubbing, cyanosis, or edema. No joint tenderness, effusion, or edema noted. No calf tenderness. Negative Homans sign bilaterally. NEUROLOGICAL: Awake and alert. RT peripheral visual field deficit. Motor and sensory grossly within normal limits. Five out of 5 muscle strength in all muscle groups. Normal speech. Laboratory labs cbc cmp int u/a normal Imaging CT head normal Course sent to [facility] from [facility] Enriquez VTE Risk Assessment Caprini VTE Risk Assessment: Mod/High Risk (score >= 2) Caprini Risk Assessment Model Point Value = 1 Point Value = 2 Point Value = 3 Point Value = 5 Age 41-60 Minor surgery BMI > 25 kg/m2 Swollen legs Varicose veins or History of unexplained or recurrent spontaneous Oral contraceptives or hormone replacement Sepsis (< 1 month) Serious lung disease, including pneumonia (< 1 month) Abnormal pulmonary function Acute myocardial infarction Congestive heart failure (< 1 month) History of inflammatory bowel disease Medical patient at bed rest Age 61-74 Arthroscopic surgery Major open surgery (> 45 min) Laparoscopic surgery (> 45 min) Malignancy Confined to bed (> 72 hours) Immobilizing plaster cast Central venous access Age >= 75 History of VTE Family history of VTE Factor V Leiden Prothrombin [id number] Lupus anticoagulant Anticardiolipin antibodies Elevated serum homocysteine Heparin-induced thrombocytopenia Other congenital or acquired thrombophilia Stroke (< 1 month) Elective arthroplasty Hip, pelvis, or leg fracture Acute spinal cord injury (< 1 month) Prophylaxis Regimen Total Risk Factor Score Risk Level Prophylaxis Regimen 0-1 Low Early ambulation 2 Moderate Order ONE of the following: *Sequential Compression Device (SCD) *Heparin 5000 units SQ BID 3-4 Higher Order ONE of the following medications: *Heparin 5000 units SQ TID *Enoxaparin/Lovenox 40 mg SQ daily (WT < 150 kg, CrCl > 30 mL/min) *Enoxaparin/Lovenox 30 mg SQ daily (WT < 150 kg, CrCl > 10-29 mL/min) *Enoxaparin/Lovenox 30 mg SQ BID (WT < 150 kg, CrCl > 30 mL/min) AND/OR *Sequential Compression Device (SCD) 5 or more Highest Order ONE of the following medications: *Heparin 5000 units SQ TID (Preferred with Epidurals) *Enoxaparin/Lovenox 40 mg SQ daily (WT < 150 kg, CrCl > 30 mL/min) *Enoxaparin/Lovenox 30 mg SQ daily (WT < 150 kg, CrCl > 10-29 mL/min) *Enoxaparin/Lovenox 30 mg SQ BID (WT < 150 kg, CrCl > 30 mL/min) AND *Sequential Compression Device (SCD) Assessment and Plan Problem List: (1) Blurred vision ICD Codes: H53.8 - Other visual disturbances Plan: await opthalmology evaluation report and will get MRI to check for any addition CVA (2) CVA (cerebrovascular accident) ICD Codes: I63.9 - Cerebrovascular accident (CVA) Status: Acute Plan: as above full work up just completed last month increase asa to 325 Assessment and Plan further plan pending review MRI and Opthalmology report Code Status full Discussed Condition With patient Jair Huff MD Mar 18, 2017 22:46
[2017-03-18 23:46] VITALS: BP 174/84; PULSE 79; RESP 18; TEMP 98.3; O2SAT 96
[2017-03-19] VITALS (10 sets, daily range): BP systolic 134–175; BP diastolic 68–78; PULSE 72–92; RESP 18–19; TEMP 97.8–98.4; O2SAT 93–98
--- NOTE | 2017-03-19 10:12 | HHI.PR ---
Subjective Remarks Pt reports that he has been having vertical diplopia for the last week. This seems to be worse when he goes outside. His vision has also been blurry as well which has been worse over the last week He saw his forestry aid yesterday, Dr. Donato, in [place] and had some testing done which he does not have the results of. Pt states that he has not had any other neurological deficits. Speech is better no appreciable weakness in his extremities. Objective Vitals Vital Signs Date Time Temp Pulse Resp B/P (MAP) Pulse Ox O2 Delivery O2 Flow Rate FiO2 03/19/17 08:35 98.2 80 18 154/73 (100) 97 03/19/17 04:18 98.1 82 19 134/68 (90) 97 03/19/17 04:10 92 03/19/17 01:21 74 03/18/17 23:46 98.3 79 18 174/84 (114) 96 03/18/17 22:33 98.3 71 18 152/72 (98) [address] W/O IV contrast (03/18/17): - No acute findings in the brain. Ischemic demyelination stable from prior Last Impressions Brain MRI 03/19/17 0600 Signed Impressions: Service Date/Time: March 11:25 - CONCLUSION: 1. Acute ischemic white matter infarct as above 2. Severe chronic ischemic changes 3. Bilateral mastoiditis Ricardo Ridley MD Objective Remarks General: NAD, AAOx3 ENT: EOMI, PERRLA, no nystagmus noted. Chest: CTA Cardiac: Regular Abd: +BS, soft ND/NT Ext: No edema Neuro: No appreciable extremity weakness. A/P Problem List: (1) Blurred vision ICD Codes: H53.8 - Other visual disturbances Plan: - Pt was admitted to [facility] on 03/18/17 with reports that he has been having vertical diplopia and blurred vision for the last week. - This seems to be worse when he goes outside. He feels is more with his distance vision. - He saw his forestry aid yesterday, Dr. Donato, in [place] and had some testing done which he does not have the results of. - I called Dr. Donato's office and they are will be faxing over the notes and results of the tests that he ran yesterday. - Pt states that he has not had any other neurological deficits. Speech is better no appreciable weakness in his extremities. - MRI Brain is pending for today. - Cont. ASA 325mg - Cont. Pravachol - Supportive care (2) CVA (cerebrovascular accident) ICD Codes: I63.9 - Cerebrovascular accident (CVA) Status: Acute Plan: - Pt was recently admitted with an acute CVA on 02/24/17. - Workup at that time included, MRI Brain which noted small area of acute infarct involving the insular cortex on the left and advanced microvascular ischemic demyelinative change. He also had an MRA head, Carotid US which were negative for any stenosis. 2D echo noted normal LV size and wall thickness, EF 45-50%, [id number] mitral valve regurgitation. Telemetry with NSR. - Pt was started on ASA 325mg and Pravachol. - Repeat MRI of the brain (03/19) --> Acute ischemic white matter infarct as above. Severe chronic ischemic changes. Bilateral mastoiditis - Consult Dr. Fernandez who had seen the patient previously. Its not clear if the findings on the CT scan are a new acute CVA vs. an extension of the patient previous CVA 3 weeks ago. We will discuss with Dr. Fernandez if ASA 325mg is adequate for anticoagulation or not. - We will also discuss the findings with Radiology as well regarding this. Jaky Trevino Mar 19, 2017 10:12
[2017-03-19] MEDS: ASPIRIN 325 MG TAB PO SCH (10:13)
[2017-03-19] MEDS: DOCUSATE SODIUM 50 MG/SENNA 8.6 MG TAB PO SCH ×2 (10:13→21:40)
[2017-03-19] MEDS: SODIUM CHLORIDE 0.9% FLUSH 10 ML FLUSH IV FLUSH SCH ×2 (10:13→21:40)
--- NOTE | 2017-03-19 13:23 | RADRPT ---
EXAM DATE/TIME: 03/19/2017 11:25 [place] COMPARISON: MRI BRAIN W/O CONTRAST, February 25, 2017, 10:02. INDICATIONS : CVA. Blurred vision. MEDICAL HISTORY : None. SURGICAL HISTORY : None. ENCOUNTER: Subsequent ACUITY: 1 month PAIN SCORE: 0/10 LOCATION: Head. TECHNIQUE: Multiplanar, multisequence MRI of the brain was performed without contrast. FINDINGS: MRI of the brain is performed in sagittal, axial and coronal planes. The craniocervical junction and midline structures are unremarkable. There is a small history the diffusion in the parker radiata lef t compatible with white matter infarcts. No cortical infarct is seen. There is bilateral mastoiditis present There is no evidence of acute cortical infarction, acute hemorrhage, mass effect or midline s hift is seen. Posterior fossa structures are unremarkable. CONCLUSION: 1. Acute ischemic white matter infarct as above 2. Severe chronic ischemic changes 3. Bilateral mastoiditis Ricardo Ridley MD on March 19, 2017 at 13:20 Board Certified Radiologist. This report was verified electronically.
[2017-03-19] MEDS ORDERED: GADODIAMIDE PF 287 MG/ML 20 ML VIAL (for RAD MRI) IVCONTRAST ONE ×2 (17:21→17:41)
--- NOTE | 2017-03-19 17:27 | MB ---
cc: NIDHI ARNETT DATE OF CONSULTATION: 03/19/2017. HISTORY OF PRESENT ILLNESS: 76-year-old right-handed man who was totally healthy until he had a stroke. He was seen by Dr. Fernandez February 25, 2017 for some slurred speech. He had a left lacunar-type white matter infarct with some white matter changes bilaterally. He was sent home on a baby aspirin and a cholesterol medicine and then about a week ago he felt like he had double vision only when he is outside and not at a distance. Not inside. He saw ophthalmology which did not find any major abnormality with his eyes. REVIEW OF SYSTEMS: He denies any hypertension, diabetes, hypercholesterolemia, atrial fibrillation, coumadin, bypass, stents, angioplasty, renal, hepatic, or pulmonary disease, thyroid disease, lupus, ulcer, cancer, seizure. No vertigo, headache, chest pain, palpitations. SOCIAL HISTORY: He is not a smoker or a drinker. He lives alone. FAMILY HISTORY: Negative for cancer, seizure or stroke. MEDICATIONS: 1. Pravachol 20 milligrams a day. 2. Aspirin 81 milligrams. PHYSICAL EXAMINATION: VITAL SIGNS: Afebrile, 79, 18, 135/70. NECK: There are no carotid bruits. HEART: Regular rhythm. I do not detect a murmur. NEUROLOGICAL EXAMINATION: Pupils are equal. Visual velazquez are full. Extraocular movements intact without nystagmus. He did not have any double vision here at a distance or up close. Face is symmetric with normal sensation. Tongue was midline. There is no drift. He had normal strength in upper and lower extremities bilaterally. DTRs are 1+ symmetric throughout. Toes are downgoing bilaterally. Pin prick and vibratory sense are intact throughout. He is not ataxic on [id number]. Speech is fluent. He is not aphasic. LABS: CBC is normal. Sedimentation rate has been normal. Urine drug screen has been negative. Urinalysis has been negative. Basic metabolic profile here is normal. Glucose 131. Hemoglobin A1c 5.7. Liver function tests normal. Total protein normal. LDL cholesterol 134 on the last admission. Coags normal then. IMAGING STUDIES: MRI of the brain shows a left periventricular lacunar type infarct which was seen on February 25, slightly larger as it has evolved and then is slightly less bright on the diffusion image consistent with a resolving infarct. The vertebrobasilar system looked fine on the [place] as did the left middle cerebral artery and carotid system. He had a carotid ultrasound last admission that was normal. He had an MRA of his [place] that was negative on review of those films. CARDIOLOGY STUDIES: Telemetry shows sinus rhythm. His Holter monitor was normal last admission. He had an echocardiogram that showed a normal ejection fraction of 45% to 50%. Left atrial size was normal. Mitral valve normal. Aortic valve negative. IMPRESSION: Some double vision but nonreproducible here only when he is outside. I do not think it is consistent with a new stroke. Nevertheless, the new MRI did not show any new stroke, just the resolving old stroke specifically in the brain stem. No old or new strokes. He does have some white matter disease bilaterally. RECOMMENDATIONS AND PLAN: 1. He could have had a small stroke not seen on the MRI, will start him on Plavix. 2. Continue him on a statin. 3. Discontinue his aspirin in three days. 4. We will check an MRA of the neck if that is negative for any significant or major vertebral disease or occult carotid disease, he could be discharged. 5. Will just check his thyroid also. I will ask the medical team to follow up on the results of that. MD DONTAE Grant/RAMAN /4:08 PM /5:09 PM
[2017-03-19] MEDS: CLOPIDOGREL 75 MG TAB PO SCH (18:00)
--- NOTE | 2017-03-19 18:10 | RADRPT ---
EXAM DATE/TIME: 03/19/2017 17:15 [place] COMPARISON: No previous studies available for comparison. INDICATIONS : Stroke. CONTRAST: 20 cc Omniscan (gadodiamide) IV MEDICAL HISTORY : None. SURGICAL HISTORY : None. ENCOUNTER: Subsequent ACUITY: 2 day PAIN SCORE: 0/10 LOCATION: Neck. Percent stenosis is calculated using the diameter of the stenotic region over the diameter of the nor mal distal internal carotid artery. TECHNIQUE: Bolus infused MRA of the extracranial circulation was performed using a neurovascular coil. Post pro cessing was performed including rotating subvolume maximum intensity projections of each carotid marce ry, rotating full volume maximum intensity projections of both carotid arteries, sagittal and coronal sliding thin slab reformations of each carotid artery, and left oblique sliding thin slab reformatio n through the aortic arch to include the origin of the arch branch vessels. FINDINGS: AORTIC ARCH: There is a three vessel origin of the great vessels from the aorta. No evidence of ostial narrowing. RIGHT CAROTID: The common carotid artery is intact. The carotid bulb has a normal configuration without ulceration or narrowing. The internal carotid artery lumen is smooth without stenosis. The external carotid ar bhavani is intact. LEFT CAROTID: The common carotid artery is intact. The carotid bulb has a normal configuration without ulceration or narrowing. The internal carotid artery lumen is smooth without stenosis. The external carotid ar bhavani is intact. VERTEBRALS: The vertebral arteries have a symmetric diameter. No stenotic lesions are seen. CONCLUSION: Normal examination. Prieto Boswell MD on March 19, 2017 at 18:08 Board Certified Radiologist. This report was verified electronically.
[2017-03-19] MEDS: PRAVASTATIN SOD 20 MG TAB PO SCH (21:40)
[2017-03-19 22:27] LABS: FREE T4 0.95 NG/DL (0.76-1.46)
[2017-03-20] VITALS (9 sets, daily range): BP systolic 124–167; BP diastolic 75–88; PULSE 77–107; RESP 16–18; TEMP 97.6–102.6; O2SAT 95–98
--- NOTE | 2017-03-20 07:50 | HHI.PR ---
Subjective Remarks Currently no double vision but states that this occurs more when he's outside. He is now complaining of some slurred speech although this is not appreciable at the time of my examination today. Objective Vitals Vital Signs Date Time Temp Pulse Resp B/P (MAP) Pulse Ox O2 Delivery O2 Flow Rate FiO2 03/20/17 04:00 98.1 85 18 156/85 (108) 98 03/19/17 23:08 98.4 79 18 170/78 (108) 96 03/19/17 20:16 97.9 78 18 140/76 (97) 98 03/19/17 15:38 98.3 79 18 135/70 (91) 93 03/19/17 12:12 97.8 73 18 149/70 (96) 94 03/19/17 08:35 98.2 80 18 154/73 (100) 97 03/19/17 08:20 72 Other Results Laboratory Tests Test 03/19/17 21:48 Free Thyroxine 0.95 NG/DL Thyroid Stimulating Hormone 3rd Gen 2.890 uIU/ML Imaging Head CT W/O IV contrast (03/18/17): - No acute findings in the brain. Ischemic demyelination stable from prior Last Impressions Brain MRI 03/19/17 0600 Signed Impressions: Service Date/Time: March 11:25 - CONCLUSION: 1. Acute ischemic white matter infarct as above 2. Severe chronic ischemic changes 3. Bilateral mastoiditis Ricardo Ridley MD Objective Remarks General: NAD, AAOx3 ENT: EOMI, PERRLA, no nystagmus noted. Chest: CTA Cardiac: Regular Abd: +BS, soft ND/NT Ext: No edema Neuro: No appreciable extremity weakness. A/P Problem List: (1) Blurred vision ICD Codes: H53.8 - Other visual disturbances Plan: - Pt was admitted to [facility] on 03/18/17 with reports that he has been having vertical diplopia and blurred vision for the last week. - This seems to be worse when he goes outside. He feels is more with his distance vision. - He saw his cake puller yesterday, Dr. Donato, in [place] and had some testing done which he does not have the results of. - I called Dr. Donato's office and they are will be faxing over the notes and results of the tests that he ran yesterday. - Pt states that he has not had any other neurological deficits. Speech is better no appreciable weakness in his extremities. - Its unclear if the pt may have had a small CVA/TIA which is not visible on the MRI. - MRA Neck (03/19/17) --> negative. - Pt has been started on Plavix - Cont. ASA 325mg x 3 more days - Cont. Pravachol - Supportive care (2) CVA (cerebrovascular accident) ICD Codes: I63.9 - Cerebrovascular accident (CVA) Status: Acute Plan: - Pt was recently admitted with an acute CVA on 02/24/17. - Workup at that time included, MRI Brain which noted small area of acute infarct involving the insular cortex on the left and advanced microvascular ischemic demyelinative change. He also had an MRA head, Carotid US which were negative for any stenosis. 2D echo noted normal LV size and wall thickness, EF 45-50%, [id number] mitral valve regurgitation. Telemetry with NSR. - Pt was started on ASA 325mg and Pravachol. - Repeat MRI of the brain (03/19) --> Acute ischemic white matter infarct as above. Severe chronic ischemic changes. Bilateral mastoiditis - Appreciate Neurology consult. - Neurology reviewed the pts MRI and feels that the findings appear to be the pts previous stroke which is resolving. Its unclear if the patient has had a small CVA/TIA thats not visible on the MRI. - MRA Neck (03/19/17) --> negative. - Pt has been started on Plavix - Cont. ASA 325mg x 3 more days ADDENDUM: - Pt had been planned for discharge today but upon re-evaluation this afternoon , pt states that he feels he is having issues with slurred speech and that when he has talked to people on the phone that they also think his speech is slurred. - We will hold discharge for today and consult speech therapy - I can't appreciate during my evaluation today any slurred speech per say Problem Qualifiers (1) CVA (cerebrovascular accident): Qualified Codes: I63.9 - Cerebral infarction, unspecified Jaky Trevino Mar 20, 2017 07:50
[2017-03-20] MEDS ORDERED: ASPI325T PO (07:51)
[2017-03-20] MEDS ORDERED: PLAV75TA29 PO (07:51)
--- NOTE | 2017-03-20 07:52 | HHI.DCPOC ---
Discharge Care Plan Diagnosis: (1) Blurred vision (2) CVA (cerebrovascular accident) Goals to Promote Your Health * To prevent worsening of your condition and complications * To maintain your health at the optimal level Directions to Meet Your Goals Take your medications as prescribed Follow your dietary instruction Follow activity as directed Keep your appointments as scheduled Take your immunizations and boosters as scheduled If your symptoms worsen call your PCP, if no PCP go to Urgent Care Center or Emergency Room Smoking is Dangerous to Your Health. Avoid second hand smoke Call the 24-hour hour crisis hotline for domestic abuse at Jaky Trevino Mar 20, 2017 07:52
[2017-03-20] MEDS: CLOPIDOGREL 75 MG TAB PO SCH (09:19)
[2017-03-20] MEDS: DOCUSATE SODIUM 50 MG/SENNA 8.6 MG TAB PO SCH ×2 (09:19→20:58)
[2017-03-20] MEDS: SODIUM CHLORIDE 0.9% FLUSH 10 ML FLUSH IV FLUSH SCH ×2 (09:19→20:58)
[2017-03-20] MEDS: ASPIRIN 325 MG TAB PO SCH (09:19)
[2017-03-20 10:40] LABS: ANA SCREEN POS (NEG)
[2017-03-20] MEDS: PRAVASTATIN SOD 20 MG TAB PO SCH (20:58)
[2017-03-21] VITALS (10 sets, daily range): BP systolic 117–148; BP diastolic 60–76; PULSE 68–90; RESP 17–20; TEMP 97.7–98; O2SAT 95–97
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
[2017-03-21] MEDS ORDERED: diphenhydrAMINE HCL 2%/ZINC ACETATE 0.1% CREAM 30 APPLIC/30 GM TUBE TOPICAL PRN (11:00)
[2017-03-21] MEDS: DOCUSATE SODIUM 50 MG/SENNA 8.6 MG TAB PO SCH ×2 (11:27→21:00)
[2017-03-21] MEDS: CLOPIDOGREL 75 MG TAB PO SCH (11:28)
[2017-03-21] MEDS: ASPIRIN 325 MG TAB PO SCH (11:28)
[2017-03-21] MEDS: SODIUM CHLORIDE 0.9% FLUSH 10 ML FLUSH IV FLUSH SCH ×2 (11:30→21:56)
[2017-03-21] MEDS: diphenhydrAMINE HCL 2%/ZINC ACETATE 0.1% CREAM 30 APPLIC/30 GM TUBE TOPICAL SCH ×2 (15:45→19:03)
[2017-03-21] MEDS: PRAVASTATIN SOD 20 MG TAB PO SCH (21:55)
[2017-03-22] VITALS (8 sets, daily range): BP systolic 118–138; BP diastolic 76–81; PULSE 72–86; RESP 17–18; TEMP 96.9–98; O2SAT 94–97
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
[2017-03-22] MEDS: diphenhydrAMINE HCL 2%/ZINC ACETATE 0.1% CREAM 30 APPLIC/30 GM TUBE TOPICAL SCH ×3 (09:00→18:00)
[2017-03-22] MEDS: HYDROCORTISONE 1% CREAM 30 GM TOPICAL SCH ×2 (10:40→17:29)
[2017-03-22] MEDS: SODIUM CHLORIDE 0.9% FLUSH 10 ML FLUSH IV FLUSH SCH ×2 (10:40→20:47)
[2017-03-22] MEDS: DOCUSATE SODIUM 50 MG/SENNA 8.6 MG TAB PO SCH ×2 (10:41→20:47)
[2017-03-22] MEDS: CLOPIDOGREL 75 MG TAB PO SCH (10:41)
[2017-03-22] MEDS: ASPIRIN 325 MG TAB PO SCH (10:42)
[2017-03-22] MEDS: PRAVASTATIN SOD 20 MG TAB PO SCH (20:47)
[2017-03-23 00:05] VITALS: BP 146/75; PULSE 80; RESP 18; TEMP 97.4; O2SAT 97
[2017-03-23] MEDS: HYDROCORTISONE 1% CREAM 30 GM TOPICAL SCH ×3 (01:13→17:00)
[2017-03-23 04:40] VITALS: BP 135/84; PULSE 83; RESP 16; TEMP 97; O2SAT 95
[2017-03-23] MEDS: diphenhydrAMINE HCL 2%/ZINC ACETATE 0.1% CREAM 30 APPLIC/30 GM TUBE TOPICAL SCH ×3 (07:47→21:21)
[2017-03-23] MEDS: DOCUSATE SODIUM 50 MG/SENNA 8.6 MG TAB PO SCH ×2 (07:47→21:21)
[2017-03-23] MEDS: CLOPIDOGREL 75 MG TAB PO SCH (07:47)
[2017-03-23] MEDS: SODIUM CHLORIDE 0.9% FLUSH 10 ML FLUSH IV FLUSH SCH ×2 (07:47→21:21)
[2017-03-23] MEDS ORDERED: SOD PHOSPHATE/SOD BIPHOSPHATE (ADULT) ENEMA 133ML PR PRN (14:45)
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
--- NOTE | 2017-03-23 14:53 | HHI.FF ---
Face to Face Verification Diagnosis: (1) Blurred vision (2) CVA (cerebrovascular accident) (3) Constipation Physical Therapy Order: Evaluate and Treat, Improve ambulation, Strength and gait training Home Health Nursing Order: Medical education Signs/symptoms of disease process Medication education-adverse effect Nursing assessment with vital signs I have seen patient Felipe MichelleJr on 03/23/17. My clinical findings support the need for the requested home health care services because: Deconditioned w/ increased weakness Med compliance is questionable Limited ability to care for self Need for psychosocial assistance I certify that my clinical findings support that this patient is homebound because: Impaired cognitive ability/safety Unsafe to leave home unassisted Need for psychosocial assistance Unable to use public transportation Kt Bey DO Mar 23, 2017 14:53
[2017-03-23] MEDS ORDERED: SOD PHOSPHATE/SOD BIPHOSPHATE (ADULT) ENEMA 133ML RECTAL ONE (15:00)
[2017-03-23 16:00] VITALS: BP 143/81; PULSE 74; RESP 18; TEMP 96.3; O2SAT 98
[2017-03-23 20:00] VITALS: BP 134/76; PULSE 99; RESP 17; TEMP 97.5; O2SAT 93
[2017-03-23] MEDS: PRAVASTATIN SOD 20 MG TAB PO SCH (21:21)
[2017-03-24] MEDS: HYDROCORTISONE 1% CREAM 30 GM TOPICAL SCH ×2 (00:11→08:38)
[2017-03-24 00:45] VITALS: BP 141/79; PULSE 73; RESP 17; TEMP 98.1; O2SAT 94
[2017-03-24 08:00] VITALS: BP 148/49; PULSE 99; RESP 16; TEMP 96.6; O2SAT 97
[2017-03-24] MEDS: DOCUSATE SODIUM 50 MG/SENNA 8.6 MG TAB PO SCH (08:37)
[2017-03-24] MEDS: CLOPIDOGREL 75 MG TAB PO SCH (08:37)
[2017-03-24] MEDS: SODIUM CHLORIDE 0.9% FLUSH 10 ML FLUSH IV FLUSH SCH (08:37)
[2017-03-24] MEDS: diphenhydrAMINE HCL 2%/ZINC ACETATE 0.1% CREAM 30 APPLIC/30 GM TUBE TOPICAL SCH (08:38)
[2017-03-24 12:00] VITALS: BP 133/83; PULSE 80; RESP 16; TEMP 97.4; O2SAT 95
[2017-03-24] MEDS ORDERED: PLAV75TA29 PO (12:51)
== END 2017-03-24 15:06 | disposition home or self-care (01) | DRG 125 ==
LOC: NEDDLT 21:45 → NEPHCDU 21:55 → UNDODISOB 03-19 16:26 → NEPGCP 03-21 05:19 → OBSVTOIN 03-22 17:49 → N06A 03-22 21:00
PROVIDERS: ADMIT Hospitalist; ATTEND Hospitalist
DX: H53.8 Other visual disturbances (principal); Z86.73 Personal history of transient ischemic attack (TIA), and cerebral infarction without residual deficits; E78.5 Hyperlipidemia, unspecified; R21 Rash and other nonspecific skin eruption; K59.00 Constipation, unspecified
CPT/HCPCS: 70450; 70548; 70551; 80053; 83921; 84425; 84439; 84443; 85025; 85610; 85652; 85730; 86038; 86039; 86592; A9579

== ENCOUNTER 2017-05-18 16:26 | Emergency (ER) | payer MEDICARE ==
[~2017-05-18 16:26] MED LIST changes: -ASPI325T PO; -EQ A81TA PO; +PLAV75TA29 PO
[2017-05-18 16:28] VITALS: BP 105/63; PULSE 124; RESP 16; TEMP 97.8; O2SAT 98
[2017-05-18 17:44] LABS: AUTOMATED NEUTROPHIL # 4.1 TH/MM3 (1.8-7.7); BASOPHIL # 0.1 TH/MM3 (0-0.2); BASOPHIL % 1.1 % (0.0-2.0); EOSINOPHIL # 0.1 TH/MM3 (0-0.4); HEMATOCRIT 41.9 % (39.0-51.0); HEMO FLAGS DIFF FINAL; LYMPH % 14.9 % (9.0-44.0); LYMPHOCYTE # 0.9 TH/MM3 (1.0-4.8); MEAN CELL VOLUME 91.7 FL (80.0-100.0); MEAN CORPUSCULAR HEMOGLOBIN 30.9 PG (27.0-34.0); MEAN CORPUSCULAR HGB CONC 33.7 % (32.0-36.0); MONO % 13.3 % (0.0-8.0); NEUT % 68.7 % (16.0-70.0); PLATELET COUNT 273 TH/MM3 (150-450); RED BLOOD COUNT 4.57 MIL/MM3 (4.50-5.90); RED CELL DISTRIBUTION WIDTH 14.2 % (11.6-17.2)
[2017-05-18 18:04] LABS: BICARBONATE 29.1 MEQ/L (21.0-32.0); POTASSIUM 3.9 MEQ/L (3.5-5.1)
--- NOTE | 2017-05-18 18:08 | PD ---
HPI Chief Complaint: General Weakness Time Seen by Provider: 17:33 Travel History International Travel<30 days: No Contact w/Intl Traveler<30days: No Traveled to known affect area: No History of Present Illness HPI 76-year-old male that presents to the ED for evaluation of weakness, gait imbalance as well as double vision for the past month and a half. Patient reports that he was seen here and discharged with no obvious answer to his symptoms. He comes here again seeking and answered. Patient did has stroke in February and had an MRI during his last visit in March that did show what appeared to be acute infarct. At the time he was thought to be okay for discharge. Patient states that overall he has not been feeling well. Per patient he feels that he has no appetite that he has lost weight. Denies any abdominal pain. No diarrhea but states that he's been constipated but had bowel movements on the weekend. He denies any chest pain or shortness of breath. No abdominal pain. No numbness, tingling, weakness. No fevers chills or sweats. He states that since been discharged he has follow-up outpatient but unclear if anything has been done. He does not know the results of his eye doctor's studies. PFSH Past Medical History Hx Anticoagulant Therapy: Yes (PLAVIX) Cancer: No Cardiovascular Problems: Yes (HTN) High Cholesterol: Yes Cerebrovascular Accident: Yes Diminished Hearing: No Endocrine: No Genitourinary: No Musculoskeletal: No Neurologic: Yes Psychiatric: No Reproductive: No Respiratory: No Influenza Vaccination: No Past Surgical History Oral Surgery: Yes (TONSILLECTOMY) Social History Alcohol Use: No Tobacco Use: No Substance Use: No Allergies-Medications (Allergen,Severity, Reaction): Coded Allergies: No Known Allergies (Unverified , 03/18/17) Reported Meds & Prescriptions Reported Meds & Active Scripts Active Plavix (Clopidogrel Bisulfate) 75 Mg Tab 75 Mg PO DAILY Pravachol (Pravastatin) 20 Mg Tab 20 Mg PO HS Review of Systems Except as stated in HPI: all other systems reviewed are Neg Physical Exam Narrative GENERAL: SKIN: Warm and dry. HEAD: Atraumatic. Normocephalic. EYES: Pupils equal and round 4 mm reactive to light and accommodation. No scleral icterus. No injection or drainage. EOM intact bilaterally. Peripheral vision intact bilaterally. ENT: No nasal bleeding or discharge. Mucous membranes pink and moist. Tongue is midline. No blood deviation. NECK: Trachea midline. No JVD. CARDIOVASCULAR: Regular rate and rhythm. No murmurs, S3, S4. RESPIRATORY: No accessory muscle use. Clear to auscultation. Breath sounds equal bilaterally. GASTROINTESTINAL: Abdomen soft, non-tender, nondistended. Hepatic and splenic margins not palpable. MUSCULOSKELETAL: Extremities without clubbing, cyanosis, or edema. No obvious deformities. Full range of motion of the upper and lower extremity bilaterally. 2+ pulses bilaterally. NEUROLOGICAL: Awake and alert. No obvious cranial nerve deficits. Motor grossly within normal limits. Five out of 5 muscle strength in the arms and legs. Normal speech. PSYCHIATRIC: Appropriate mood and affect; insight and judgment normal. Data Data Last Documented VS Vital Signs Date Time Temp Pulse Resp B/P (MAP) Pulse Ox O2 Delivery O2 Flow Rate FiO2 05/18/17 20:29 71 18 123/62 (82) 81 18 117/66 (83) 91 18 116/68 (84) 05/18/17 19:20 97 Room Air 05/18/17 16:28 97.8 Orders Orders Complete Blood Count With Diff (05/18/17 16:40) Basic Metabolic Panel (Bmp) (05/18/17 16:40) Urinalysis - C+S If Indicated (05/18/17 16:40) Ct Brain W/O Iv Contrast(Rout) (05/18/17 ) Chest, Single Ap (05/18/17 ) Troponin I (05/18/17 17:42) Creatine Kinase (Cpk) (05/18/17 17:42) Lactic Acid (05/18/17 17:42) Electrocardiogram (05/18/17 ) Orthostatic Vital Signs (05/18/17 18:07) Sodium Chlorid 0.9% 500 Ml Inj (Ns 500 M (05/18/17 20:45) Ed Discharge Order (05/18/17 20:50) Labs Laboratory Tests Test 05/18/17 17:20 05/18/17 19:10 05/18/17 20:04 White Blood Count 6.0 TH/MM3 Red Blood Count 4.57 MIL/MM3 Hemoglobin 14.1 GM/DL Hematocrit 41.9 % Mean Corpuscular Volume 91.7 FL Mean Corpuscular Hemoglobin 30.9 PG Mean Corpuscular Hemoglobin Concent 33.7 % Red Cell Distribution Width 14.2 % Platelet Count 273 TH/MM3 Mean Platelet Volume 8.1 FL Neutrophils (%) (Auto) 68.7 % Lymphocytes (%) (Auto) 14.9 % Monocytes (%) (Auto) 13.3 % Eosinophils (%) (Auto) 2.0 % Basophils (%) (Auto) 1.1 % Neutrophils # (Auto) 4.1 TH/MM3 Lymphocytes # (Auto) 0.9 TH/MM3 Monocytes # (Auto) 0.8 TH/MM3 Eosinophils # (Auto) 0.1 TH/MM3 Basophils # (Auto) 0.1 TH/MM3 CBC Comment DIFF FINAL Differential Comment Blood Urea Nitrogen 14 MG/DL Creatinine 1.13 MG/DL Random Glucose 150 MG/DL Calcium Level 8.5 MG/DL Sodium Level 140 MEQ/L Potassium Level 3.9 MEQ/L Chloride Level 103 MEQ/L Carbon Dioxide Level 29.1 MEQ/L Anion Gap 8 MEQ/L Estimat Glomerular Filtration Rate 63 ML/MIN Lactic Acid Level 1.9 mmol/L Total Creatine Kinase 21 U/L Troponin I LESS THAN 0.02 NG/ML Urine Color YELLOW Urine Turbidity HAZY Urine pH 6.0 Urine Specific [place] 1.028 Urine Protein 30 mg/dL Urine Glucose (UA) NEG mg/dL Urine Ketones 10 mg/dL Urine Occult Blood NEG Urine Nitrite NEG Urine Bilirubin NEG Urine Urobilinogen 8.0 MG/DL Urine Leukocyte Esterase NEG Urine RBC 5 /hpf Urine WBC 2 /hpf Urine Squamous Epithelial Cells <1 /hpf Urine Amorphous Sediment RARE Urine Hyaline Casts 6 /lpf Urine Mucus MANY /lpf Microscopic Urinalysis Comment CULT NOT INDICATED MDM Medical Decision Making Medical Screen Exam Complete: Yes Emergency Medical Condition: Yes Medical Record Reviewed: Yes Interpretation(s) CBC & BMP Diagram 05/18/17 17:20 Calcium Level 8.5 EKG shows sinus rhythm with no sign of acute ischemia or arrhythmia read by me and attending. Troponin and CK-MB negative. UA negative for acute disease. Last Impressions Head CT 05/18/17 0000 Signed Impressions: Service Date/Time: Thursday, May 18, 2017 18:52 - CONCLUSION: 1. Stable noncontrast head CT. No acute finding is identified. 2. Chronic changes include generalized atrophy and periventricular and subcortical white matter low density characteristic of chronic microvascular ischemia. Prieto Rausch MD Chest X-Ray 05/18/17 0000 Signed Impressions: Service Date/Time: Thursday, May 18, 2017 17:45 - CONCLUSION: No acute cardiopulmonary abnormality is identified. Prieto Rausch MD Differential Diagnosis CVA versus acute on chronic versus weakness versus blurry vision versus diplopia Narrative Course 76-year-old male that presents to the ED for evaluation of weakness, blurred vision. Patient was properly examined and was found to have signs and symptoms of unclear etiology at this time. Labs and imaging were ordered. This was negative for acute disease to explain the patient's symptoms. My attending evaluated the patient and she spoke with the patient and it appears to patient likely suffered from depression. Patient has not started depression medication prescribed by his doctor. Please refer to my attendings note. This time patient can follow-up outpatient. He was told to take the depression medication given to him. He has no neurological deficits and appears to most of his symptoms are secondary to his depression. Close follow with PCP. See ED worsening symptoms. Diagnosis Primary Impression: Adjustment disorder with depressed mood Patient Instructions: General Instructions Additional Instructions: Take medications prescribed by your doctor. Follow with PCP. See ED for worsening symptoms. Med/Other Pt SpecificInfo: No Change to Meds Disposition: 01 DISCHARGE HOME Condition: Stable Peter Simon May 18, 2017 18:08
--- NOTE | 2017-05-18 18:24 | RADRPT ---
EXAM DATE/TIME: 05/18/2017 17:45 [facility] COMPARISON: CHEST SINGLE AP, February 24, 2017, 15:36. INDICATIONS : Fever and blurred vision. MEDICAL HISTORY : Hypercholesterolemia. CVA, anticoagulant therapy. SURGICAL HISTORY : None. ENCOUNTER: Initial ACUITY: 1 day PAIN SCORE: 0/10 LOCATION: Bilateral chest FINDINGS: Portable AP view of the chest demonstrates a normal-sized cardiac silhouette. No effusion, consolidat ion, or pneumothorax is visualized. The bones and soft tissues demonstrate no acute abnormality. CONCLUSION: No acute cardiopulmonary abnormality is identified. Prieto Rausch MD on May 18, 2017 at 18:21 Board Certified Radiologist. This report was verified electronically.
[2017-05-18 19:20] VITALS: BP 114/66; PULSE 84; RESP 18; O2SAT 97
--- NOTE | 2017-05-18 19:20 | RADRPT ---
EXAM DATE/TIME: 05/18/2017 18:52 [facility] COMPARISON: CT BRAIN W/O CONTRAST, March 18, 2017, 18:03. INDICATIONS : Patient has blurred vision, weakness, headache. RADIATION DOSE: 56.42 CTDIvol (mGy) MEDICAL HISTORY : Cerebrovascular disease. Hypertension. SURGICAL HISTORY : None. ENCOUNTER: Initial ACUITY: 1 day PAIN SCALE: 5/10 LOCATION: cranial TECHNIQUE: Multiple contiguous axial images were obtained of the head. Using automated exposure control and adj ustment of the mA and/or kV according to patient size, radiation dose was kept as low as reasonably a chievable to obtain optimal diagnostic quality images. DICOM format image data is available electro nically for review and comparison. FINDINGS: CEREBRUM: There is mild generalized atrophy. Ventricles are normal. Periventricular and subcortical white matte r low-attenuation bilaterally a stable. No evidence of midline shift, mass lesion, hemorrhage or acu te infarction. No extra-axial fluid collections are seen. POSTERIOR FOSSA: The cerebellum and brainstem are intact. The 4th ventricle is midline. The cerebellopontine angle i s unremarkable. EXTRACRANIAL: The visualized portion of the orbits is intact. SKULL: The calvaria is intact. No evidence of skull fracture. CONCLUSION: 1. Stable noncontrast head CT. No acute finding is identified. 2. Chronic changes include generalized atrophy and periventricular and subcortical white matter low d ensity characteristic of chronic microvascular ischemia. Prieto Rausch MD on May 18, 2017 at 19:16 Board Certified Radiologist. This report was verified electronically.
[2017-05-18 19:43] LABS: CREATINE KINASE 21 U/L (39-308)
--- NOTE | 2017-05-18 20:16 | PD ---
Physical Exam Narrative General: The patient is well-developed well-nourished male in no acute distress. Head and Neck exam: Head is normocephalic atraumatic. Eyes: EOMI, pupils are equal round and reactive to light. Nose: Midline septum with pink mucous membranes Mouth: Dentition unremarkable. Moist mucus membranes. Posterior oropharynx is not erythematous. No tonsillar hypertrophy. Uvula midline. Airway patent. Neck: No palpable lymphadenopathy. No nuchal rigidity. No thyromegaly. Cardiovascular: Regular rate and rhythm without murmurs, gallops, or rubs. No pulse deficit to the extremities. Lungs: Clear to auscultation bilaterally. No wheezes, rhonchi, or rales. Abdomen: Soft, without tenderness to palpation in all 4 quadrants of the abdomen. No guarding, rebound, or rigidity. Normal bowel sounds are audible. No tenderness on palpation of McBurney's point. Extremities: No clubbing, cyanosis, or edema. 2+ pulses in all 4 extremities. No calf tenderness on palpation. Neurologic Exam: Cranial nerves 2-12 were intact on exam. Strength is 5/5 in all 4 extremities. No sensory deficits noted. No dysdiadochokinesis. Good finger to nose and Heel to [place] bilaterally. Skin Exam: No rash noted. Intact skin that is warm and dry. Data Data Last Documented VS Vital Signs Date Time Temp Pulse Resp B/P (MAP) Pulse Ox O2 Delivery O2 Flow Rate FiO2 05/18/17 20:29 71 18 123/62 (82) 81 18 117/66 (83) 91 18 116/68 (84) 05/18/17 19:20 97 Room Air 05/18/17 16:28 97.8 Orders Orders Complete Blood Count With Diff (05/18/17 16:40) Basic Metabolic Panel (Bmp) (05/18/17 16:40) Urinalysis - C+S If Indicated (05/18/17 16:40) Ct Brain W/O Iv Contrast(Rout) (05/18/17 ) Chest, Single Ap (05/18/17 ) Troponin I (05/18/17 17:42) Creatine Kinase (Cpk) (05/18/17 17:42) Lactic Acid (05/18/17 17:42) Electrocardiogram (05/18/17 ) Orthostatic Vital Signs (05/18/17 18:07) Labs Laboratory Tests Test 05/18/17 17:20 05/18/17 19:10 05/18/17 20:04 White Blood Count 6.0 TH/MM3 Red Blood Count 4.57 MIL/MM3 Hemoglobin 14.1 GM/DL Hematocrit 41.9 % Mean Corpuscular Volume 91.7 FL Mean Corpuscular Hemoglobin 30.9 PG Mean Corpuscular Hemoglobin Concent 33.7 % Red Cell Distribution Width 14.2 % Platelet Count 273 TH/MM3 Mean Platelet Volume 8.1 FL Neutrophils (%) (Auto) 68.7 % Lymphocytes (%) (Auto) 14.9 % Monocytes (%) (Auto) 13.3 % Eosinophils (%) (Auto) 2.0 % Basophils (%) (Auto) 1.1 % Neutrophils # (Auto) 4.1 TH/MM3 Lymphocytes # (Auto) 0.9 TH/MM3 Monocytes # (Auto) 0.8 TH/MM3 Eosinophils # (Auto) 0.1 TH/MM3 Basophils # (Auto) 0.1 TH/MM3 CBC Comment DIFF FINAL Differential Comment Blood Urea Nitrogen 14 MG/DL Creatinine 1.13 MG/DL Random Glucose 150 MG/DL Calcium Level 8.5 MG/DL Sodium Level 140 MEQ/L Potassium Level 3.9 MEQ/L Chloride Level 103 MEQ/L Carbon Dioxide Level 29.1 MEQ/L Anion Gap 8 MEQ/L Estimat Glomerular Filtration Rate 63 ML/MIN Lactic Acid Level 1.9 mmol/L Total Creatine Kinase 21 U/L Troponin I LESS THAN 0.02 NG/ML Urine Color YELLOW Urine Turbidity HAZY Urine pH 6.0 Urine Specific [place] 1.028 Urine Protein 30 mg/dL Urine Glucose (UA) NEG mg/dL Urine Ketones 10 mg/dL Urine Occult Blood NEG Urine Nitrite NEG Urine Bilirubin NEG Urine Urobilinogen 8.0 MG/DL Urine Leukocyte Esterase NEG Urine RBC 5 /hpf Urine WBC 2 /hpf Urine Squamous Epithelial Cells <1 /hpf Urine Amorphous Sediment RARE Urine Hyaline Casts 6 /lpf Urine Mucus MANY /lpf Microscopic Urinalysis Comment CULT NOT INDICATED MDM Medical Record Reviewed: Yes Supervised Visit with ART: Yes Interpretation(s) Last Impressions Head CT 05/18/17 0000 Signed Impressions: Service Date/Time: Thursday, May 18, 2017 18:52 - CONCLUSION: 1. Stable noncontrast head CT. No acute finding is identified. 2. Chronic changes include generalized atrophy and periventricular and subcortical white matter low density characteristic of chronic microvascular ischemia. Prieto Rausch MD Chest X-Ray 05/18/17 0000 Signed Impressions: Service Date/Time: Thursday, May 18, 2017 17:45 - CONCLUSION: No acute cardiopulmonary abnormality is identified. Prieto Rausch MD Narrative Course I, Dr. Larse, have reviewed the advance practice practitioner's documentation and am in agreement, met with the patient face to face, made the diagnosis, and the medical decision making was done by me. The patient was initially evaluated by Peter, the physician assistant professor sculpture. Please see their complete history and physical. *My assessment and Findings: The patient presents with He reports a few month history nausea and dizziness. The dizziness is more of a lightheaded sensation that is worse with standing. He has fatigue with generalized fatigue. He has mainly staying in bed. He denies vomiting. His urine has looked dark. He had stroke in February that affected his ability to chew and swallow. He is taking Plavix daily. He has an appointment with a neurologist for the first time scheduled next week. The patient is unsure what neurologist he saw while he was an inpatient. The patient reports that he did see an seat covers trimmer regarding some double vision, however no underlying eye problem was noted. On reviewing the patient's electronic medical record the patient was admitted in February and was diagnosed with a lacunar stroke. The patient was started on an adult aspirin in the hospital and then discharged home on Pravachol and low- dose aspirin daily. The patient again came back in March reporting intermittent diplopia. The patient was seen at that time by Dr. Blue. A thorough workup was done including repeat MRI of the brain which showed that the stroke that he previously had was evolving, however no new stroke was noted. The patient also had an MRA of the brain that was unremarkable, carotid ultrasounds that were unremarkable. The patient was switched to Plavix in addition to his Pravachol. The patient reports that he has followed up with his primary care physician, Dr. Gray. On further discussion with the patient the patient reports that he has been increasingly depressed since he lost his roommate at 9 years in November of this year. He reports that his roommate moved to [place] with his son without saying goodbye. The patient reports that he was given a prescription for an antidepressant by Dr. Gray, however he has not started this medication yet. During the course of the patients emergency department visit, the patients history, examination, and differential diagnosis were reviewed with the patient. The patient was placed on a conference manager with oximetry and frequent blood pressure monitoring. The patient had IV access obtained and blood work sent for analysis. The patients laboratory studies were reviewed and remarkable for white count 6, hemoglobin 14.1, platelets 273 with 13.3 monocytes, basic metabolic profile is remarkable for glucose 150, calcium 8.5, CPK 21, troponin I less than 0.02, lactic acid 1.9. Urinalysis shows 10 ketones, 8 urobilinogen, 5 RBCs, otherwise unremarkable Radiology studies were reviewed and remarkable for a chest x-ray that shows no acute cardiopulmonary disease, stable noncontrast head CT. Upon further discussion with the patient, the patient's symptoms are most consistent with depression related to the loss of his roommate and also his recent stroke. The patient was instructed regarding the importance of starting the antidepressant that was previously prescribed by his primary care physician and close follow-up with his neurologist and primary care physician as previously scheduled for this next week. He is instructed to continue on Pravachol and Plavix as previously prescribed. Patient denies any suicidal ideations. The patient's symptoms of dizziness with standing are likely related to his poor by mouth intake. He reports that he is not even drinking fluids well as he stays in bed most of the day. The patient is instructed regarding the importance of good hydration. The patient is resting comfortably and feels better, is alert and in no distress. The patients results and examination findings were discussed with the patient. The repeat examination is unremarkable and benign. The history, exam, diagnostic testing, and current condition do not suggest any significant pathology to warrant further testing, continued ED treatment, admission, or surgical evaluation at this point. The vital signs have been stable. The patient does not have uncontrollable pain, intractable vomiting, or other significant symptoms. The patient's condition is stable and appropriate for discharge. The patient will pursue further outpatient evaluation with a primary care physician or other designated or consulting physician as indicated in the discharge instructions. The patient expressed understanding and was agreeable with this plan. Diagnosis Primary Impression: Mild dehydration Additional Impression: Adjustment disorder with depressed mood Referrals: Neurologist 3 days Primary Care Physician 3 days Med/Other Pt SpecificInfo: No Change to Meds Disposition: 01 DISCHARGE HOME Condition: Stable Angella Lares MD May 18, 2017 20:16
[2017-05-18 20:29] VITALS: BP_SYST 116; BP_SYST 123; BP_DIAS 62; BP_DIAS 68; RESP 18
[2017-05-18 20:31] LABS: BLOOD, URINE NEG (NEG); COMMENT (UR) CULT NOT INDICATED; CULTURE IF INDICATED CULT NOT INDICATED; GLUCOSE,URINE NEG (NEG); HYALINE CAST, URINE 6 /lpf (RARE); KETONE, URINE 10 mg/dL (NEG); MUCUS URINE MANY /lpf (OCC); NITRITE,URINE NEG (NEG); SQUAMOUS EPITHELIAL CELL URINE <1 /hpf (0-5); URINE COLOR YELLOW (YELLW/STRAW)
[2017-05-18] MEDS ORDERED: SODIUM CHLORID 0.9% 500 ML INJ 500 ML IV ONE (20:45)
[2017-05-18 21:43] VITALS: BP 125/65; PULSE 71; RESP 18; O2SAT 100
--- NOTE | 2017-05-19 18:35 | EKG ---
Date Performed: 05/18/2017 Time Performed: 19:14:27 PTAGE: 76 years EKG: Sinus rhythm NORMAL ECG NO PREVIOUS TRACING DOCTOR: Maureen Collado Interpretating Date/Time 05/19/2017 18:34:19
== END 2017-05-18 21:53 | disposition home or self-care (01) ==
LOC: NEPC 16:26
DX: E86.0 Dehydration (principal); F43.21 Adjustment disorder with depressed mood; E78.00 Pure hypercholesterolemia, unspecified; I10 Essential (primary) hypertension; Z79.02 Long term (current) use of antithrombotics/antiplatelets; Z79.899 Other long term (current) drug therapy
CPT/HCPCS: 70450; 71010; 80048; 81001; 82550; 83605; 84484; 85025; 93005; 99285; J7040